=== PATIENT | male | born 1990 | race Caucasian/White ===

== ENCOUNTER 2019-07-17 17:11 | Emergency (ER) | payer OTHER, BC ==
[~2019-07-17] VITALS: Ht 193 cm; Wt 142.0 kg
== END 2019-07-17 18:47 | disposition home or self-care (01) ==
LOC: ED 17:11
PROC: 0RSXXZZ Reposition Left Finger Phalangeal Joint, External Approach (ICD-10-PCS; principal; 2019-07-17)
DX: S63.286A Dislocation of proximal interphalangeal joint of right little finger, initial encounter (principal); X58.XXXA Exposure to other specified factors, initial encounter
CPT/HCPCS: 26770; 73140; 99283-25